=== PATIENT | female | born 1935 | race Asian ===

== ENCOUNTER 2016-12-10 10:23 | Emergency (ER) | payer OTHER, BC ==
--- NOTE | 2016-12-10 10:44 | PDOC ---
History of Present Illness - General History Source: Patient Exam Limitations: No Limitations - History of Present Illness Initial Comments: 12/10/16 11:13 The patient is an 81 year old female with no significant past medical history who presents to the emergency department s/p mechanical fall this morning. The patient was going to her yoga class this morning when she missed a step and fell down approximately 8 stairs as per EMS. The patient states she feels bumps on her head from the fall but otherwise she has little pain. The patient denies any LOC from the fall but did hit her head. She is not on any blood thinners. The patient denies any headache or blurry vision. She denies any abdominal pain , nausea, or vomiting. The patient denies any chest pain or shortness of breath. She denies any recent illness, fevers, or chills. The patient does not take any medications daily but does take daily vitamins. She denies any alcohol , tobacco, or drug use. <Yarelis Auguste - Last Filed: 12/10/16 11:13> - General History Source: Patient, Old Records Exam Limitations: No Limitations <Nena Solares - Last Filed: 12/10/16 11:45> - General Stated Complaint: FALL Time Seen by Provider: 12/10/16 10:27 Past History <Yarelis Auguste - Last Filed: 12/10/16 11:13> - Past Medical History Anemia: No Asthma: No Cancer: No Cardiac Disorders: No CVA: No COPD: No CHF: No Dementia: No Diabetes: No GI Disorders: Yes (COLONIC POLYPS) Disorders: No HTN: No Hypercholesterolemia: No Liver Disease: No Seizures: No Thyroid Disease: No - Surgical History Abdominal Surgery: No Appendectomy: No Cardiac Surgery: No Cholecystectomy: No Lung Surgery: No Neurologic Surgery: No Orthopedic Surgery: Yes (LEFT WRIST FX) - Psycho/Social/Smoking Cessation Hx Anxiety: No Suicidal Ideation: No Smoking History: Never smoked Have you smoked in the past 12 months: No Number of Cigarettes Smoked Daily: 0 Hx Alcohol Use: No Drug/Substance Use Hx: No Substance Use Type: None Hx Substance Use Treatment: No <Nena Solares - Last Filed: 12/10/16 11:45> - Past Medical History Allergies/Adverse Reactions: Allergies Allergy/AdvReac Type Severity Reaction Status Date / Time No Known Allergies Allergy Verified 12/10/16 10:47 Home Medications: Ambulatory Orders NK [No Known Home Medication] 12/10/16 Review of Systems - Review of Systems Able to Perform ROS?: Yes Comments:: 12/10/16 11:13 GENERAL/CONSTITUTIONAL: No fever or chills. No weakness. HEAD, EYES, EARS, NOSE AND THROAT: No change in vision. No ear pain or discharge. No sore throat. CARDIOVASCULAR: No chest pain or shortness of breath. RESPIRATORY: No cough, wheezing, or hemoptysis. GASTROINTESTINAL: No nausea, vomiting, diarrhea or constipation. GENITOURINARY: No dysuria, frequency, or change in urination. MUSCULOSKELETAL: No joint or muscle swelling or pain. No neck or back pain. SKIN: No rash NEUROLOGIC: No headache, vertigo, loss of consciousness, or change in strength/ sensation. ENDOCRINE: No increased thirst. No abnormal weight change. HEMATOLOGIC/LYMPHATIC: No anemia, easy bleeding, or history of blood clots. ALLERGIC/IMMUNOLOGIC: No hives or skin allergy. <Yarelis Auguste - Last Filed: 12/10/16 11:13> *Physical Exam - Vital Signs Last Vital Signs Temp Pulse Resp BP Pulse Ox 97.7 F 73 14 167/80 98 12/10/16 10:25 12/10/16 10:25 12/10/16 10:25 12/10/16 10:25 12/10/16 10:25 - Physical Exam Comments: 12/10/16 11:13 GENERAL: Awake, alert, and fully oriented, in no acute distress HEAD: +Large contusion on the left posterior parietal region, a small contusion on the right posterior parietal region, and a small contusion on the right frontal region. EYES: +Left eye is post surgical. PERRLA, EOMI, sclera anicteric, conjunctiva clear ENT: Auricles normal inspection, hearing grossly normal, nares patent, oropharynx clear without exudates. Moist mucosa NECK: Normal ROM, supple, no lymphadenopathy, JVD, or masses LUNGS: Breath sounds equal, clear to auscultation bilaterally. No wheezes, and no crackles HEART: Regular rate and rhythm, normal S1 and S2, no murmurs, rubs or gallops ABDOMEN: Soft, nontender, normoactive bowel sounds. No guarding, no rebound. No masses EXTREMITIES: Normal range of motion, no edema. No clubbing or cyanosis. No cords, erythema, or tenderness NEUROLOGICAL: Cranial nerves II through XII grossly intact. Normal speech, normal gait SKIN: Warm, Dry, normal turgor, no rashes or lesions noted. <Yarleis Auguste - Last Filed: 12/10/16 11:13> Medical Decision Making - Medical Decision Making 12/10/16 11:41 81 y/o female with no significant PMHx who presents to the ED with scalp contusions following a mechanical fall down approximately 8 stairs with no LOC and non-focal neurologic exam. DDx includes but is not limited to: ICH, TBI, concussion, isolated scalp contusions. Plan: 1. CT head 2. Patient declines pain meds at this time stating that she is not in pain 3. Observe and re-evaluate [place]: CT head has been reviewed and results are noted in the EMR. There is no acute intra-cranial injury. I have discussed the results of this study with the patient. Will discharge home and advise that she follow-up with her PCP within one week. I will also advise the patient to return to the ED if she develops headache unrelieved with OTC pain meds, nausea, vomiting, AMS or any other Sx. <Nena Solares - Last Filed: 12/10/16 11:45> *DC/Admit/Observation/Transfer - Attestations Scribe Attestion: 12/10/16 11:17 Documentation prepared by Yarelis Auguste, acting as medical device for Nena Solares MD. <Yarelis Auguste - Last Filed: 12/10/16 11:13> - Discharge Dispostion Admit: No - Attestations Physician Attestion: 12/10/16 11:45 I, Dr. Nena Solares, attest that the scribes documentation that appears above has been prepared under my direction and personally reviewed by me in its entirety. I confirmed that the note above accurately reflects all work, treatment, procedures, and medical decision-making performed by me. <Nena Solares - Last Filed: 12/10/16 11:45> Diagnosis at time of Disposition: Contusion of scalp, Fall down stairs - Discharge Dispostion Disposition: HOME Condition at time of disposition: Stable - Patient Instructions Additional Instructions: Follow-up with your primary care physician within one week. Please take Tylenol for any pain or headache. You may return to the ED if you have a headache that is unrelieved with Tylenol, nausea and vomiting or any other symptoms that concern you.
[2016-12-10 10:47] VITALS: TEMP 97.7; BMI 18.8
[2016-12-10 12:05] VITALS: BP 147/75; PULSE 74
== END 2016-12-10 12:04 | disposition home or self-care (01) ==
LOC: JER 10:23
DX: S00.03XA Contusion of scalp, initial encounter (principal); W10.9XXA Fall (on) (from) unspecified stairs and steps, initial encounter; Y93.89 Activity, other specified; Y92.9 Unspecified place or not applicable
CPT/HCPCS: 70450-TC; 99281-25